=== PATIENT | female | born 1990 | race African-American/Black ===

== ENCOUNTER 2019-08-11 12:05 | Emergency (ER) | payer OTHER ==
[~2019-08-11] VITALS: Ht 175.3 cm; Wt 104.3 kg
[2019-08-11 12:37] VITALS: BP 160/90
[2019-08-11] MEDS ORDERED: Morphine Sulfate 4mg/ml Inj (IV USE ONLY) IVP ONE (13:00)
[2019-08-11 13:01] LABS: ANION GAP 11 mmol/L (5-15); BLOOD UREA NITROGEN 32 mg/dL (7-18); CALCIUM 8.7 MG/DL (8.5-10.1); CARBON DIOXIDE 27 MMOL/L (21-32); CHLORIDE 106 MMOL/L (98-107); CREATININE 0.9 MG/DL (0.55-1.30); SODIUM 144 MMOL/L (136-145)
[2019-08-11 13:06] LABS: ALANINE AMINOTRANSFERASE 35 U/L (12-78); ALBUMIN 4.1 G/DL (3.4-5.0); ALBUMIN/GLOBULIN RATIO 0.9 (1.0-2.7); ALKALINE PHOSPHATASE 109 U/L (46-116); ASPARTATE AMINO TRANSFERASE 26 U/L (15-37); BILIRUBIN,TOTAL 0.3 MG/DL (0.2-1.0)
[2019-08-11 13:30] LABS: APPEARANCE,URINE SLIGHTLY CLOUDY; BILIRUBIN, URINE NEGATIVE (NEGATIVE); COLOR,URINE PALE YELLOW; GLUCOSE, URINE (UA) NEGATIVE (NEGATIVE); KETONES,URINE NEGATIVE (NEGATIVE); LEUKOCYTE ESTERASE ,URINE 1+ (NEGATIVE); NITRITE,URINE NEGATIVE (NEGATIVE); PH,URINE 6 (4.5-8.0); PROTEIN,URINE 2+ (NEGATIVE); UROBILINOGEN,URINE NORMAL MG/DL (0.0-1.0)
[2019-08-11 13:30] LABS: BASOPHILS % (AUTO) 0.9 % (0.0-2.0); EOSINOPHILS % (AUTO) 0.7 % (0.0-3.0); HEMATOCRIT 40.4 % (37.0-47.0); HEMOGLOBIN 12.6 G/DL (12.0-16.0); LYMPHOCYTES % (AUTO) 24.2 % (20.0-45.0); MEAN CORPUSCULAR VOLUME 75 FL (80-99); MONOCYTES % (AUTO) 7.1 % (1.0-10.0); NEUTROPHILS % (AUTO) 67.1 % (45.0-75.0); PLATELET COUNT 178 K/UL (150-450); RED BLOOD COUNT 5.37 M/UL (4.20-5.40); WHITE BLOOD COUNT 6.7 K/UL (4.8-10.8)
[2019-08-11] MEDS ORDERED: ZOFRAN4 MG ORAL (14:08)
--- NOTE | 2019-08-11 14:08 | Emergency Room Report ---
History of Present Illness General Chief Complaint: Nausea, Vomiting, and Diarrhea Source: Patient Present Illness HPI 28-year-old female history of lupus on Plaquenil presents with acute nausea and vomiting patient reports this occurs every few months, she states that pain medication as well as antiemetics help her, severity is mild with intermittent abdominal cramping no chest pain or shortness of breath she does endorse some nausea and vomiting no fevers no chills no cough no congestion no exposure to COVID patient's patient presents for IV fluids as well as pain control Allergies: Coded Allergies: IBUPROFEN (Verified Allergy, Unknown, 08/11/19) COVID-19 Screening Contact w/high risk pt: No Recent Travel to affected area: No Experienced COVID-19 symptoms?: No Patient History Past Medical History: see triage record Last Menstrual Period: on period Reviewed Nursing Documentation: PMH: Agreed; PSxH: Agreed Nursing Documentation-PMH Past Medical History: No History, Except For Hx Hypertension: Yes Review of Systems All Other Systems: negative except mentioned in HPI Physical Exam Vital Signs Date Time Temp Pulse Resp B/P (MAP) Pulse Ox O2 Delivery O2 Flow Rate FiO2 08/11/19 12:06 97.2 60 16 160/90 (113) 99 Room Air Sp02 EP Interpretation: reviewed, normal General Appearance: well appearing, no apparent distress, alert Head: normocephalic, atraumatic Eyes: bilateral eye PERRL, bilateral eye EOMI ENT: uvula midline, moist mucus membranes Neck: supple, thyroid normal, supple/symm/no masses Respiratory: lungs clear, no respiratory distress, no retraction, no accessory muscle use Cardiovascular #1: normal peripheral pulses, regular rate, rhythm, no edema, no gallop, no murmur Gastrointestinal: non tender, soft, no guarding, no rebound Musculoskeletal: normal inspection Neurologic: alert, oriented x3 Psychiatric: mood/affect normal Skin: no rash, warm/dry Medical Decision Making Diagnostic Impression: Primary Impression: Nausea, vomiting, and diarrhea ER Course 28-year-old female presents with acute nausea and vomiting, and potential diarrhea differential diagnosis includes colitis, diverticulitis, appendicitis, abdomen is soft nontender no rebound no guarding low suspicion for diverticulitis or appendicitis patient improved significantly with fluids 2 L as well as pain control with 8 mg of morphine and Zofran, will discharge patient with Zofran, patient's abdomen remains soft nontender no rebound no guarding disposition home with return precautions patient will follow-up with her PCP Laboratory Tests Test 08/11/19 12:00 08/11/19 12:10 Urine Color Pale yellow Urine Appearance Slightly cloudy Urine pH 6 (4.5-8.0) Urine Specific [place] 1.020 (1.005-1.035) Urine Protein 2+ (NEGATIVE) H Urine Glucose (UA) Negative (NEGATIVE) Urine Ketones Negative (NEGATIVE) Urine Blood 5+ (NEGATIVE) H Urine Nitrite Negative (NEGATIVE) Urine Bilirubin Negative (NEGATIVE) Urine Urobilinogen Normal MG/DL (0.0-1.0) Urine Leukocyte Esterase 1+ (NEGATIVE) H Urine RBC Tntc /HPF (0 - 2) H Urine WBC 2-4 /HPF (0 - 2) Urine Squamous Epithelial Cells Many /LPF (NONE/OCC) H Urine Bacteria Few /HPF (NONE) Urine HCG, Qualitative Negative (NEGATIVE) Urine Opiates Screen Negative (NEGATIVE) Urine Barbiturates Screen Negative (NEGATIVE) Phencyclidine (PCP) Screen Negative (NEGATIVE) Urine Amphetamines Screen Negative (NEGATIVE) Urine Benzodiazepines Screen Negative (NEGATIVE) Urine Cocaine Screen Negative (NEGATIVE) Urine Marijuana (THC) Screen Positive (NEGATIVE) H White Blood Count 6.7 K/UL (4.8-10.8) Red Blood Count 5.37 M/UL (4.20-5.40) Hemoglobin 12.6 G/DL (12.0-16.0) Hematocrit 40.4 % (37.0-47.0) Mean Corpuscular Volume 75 FL (80-99) L Mean Corpuscular Hemoglobin 23.5 PG (27.0-31.0) L Mean Corpuscular Hemoglobin Concent 31.3 G/DL (32.0-36.0) L Red Cell Distribution Width 13.0 % (11.6-14.8) Platelet Count 178 K/UL (150-450) Mean Platelet Volume 7.1 FL (6.5-10.1) Neutrophils (%) (Auto) 67.1 % (45.0-75.0) Lymphocytes (%) (Auto) 24.2 % (20.0-45.0) Monocytes (%) (Auto) 7.1 % (1.0-10.0) Eosinophils (%) (Auto) 0.7 % (0.0-3.0) Basophils (%) (Auto) 0.9 % (0.0-2.0) Sodium Level 144 MMOL/L (136-145) Potassium Level 4.0 MMOL/L (3.5-5.1) Chloride Level 106 MMOL/L (98-107) Carbon Dioxide Level 27 MMOL/L (21-32) Anion Gap 11 mmol/L (5-15) Blood Urea Nitrogen 32 mg/dL (7-18) H Creatinine 0.9 MG/DL (0.55-1.30) Estimated Glomerular Filtration Rate > 60 mL/min (>60) Glucose Level 127 MG/DL (74-106) H Calcium Level 8.7 MG/DL (8.5-10.1) Total Bilirubin 0.3 MG/DL (0.2-1.0) Aspartate Amino Transferase (AST) 26 U/L (15-37) Alanine Aminotransferase (ALT) 35 U/L (12-78) Alkaline Phosphatase 109 U/L (46-116) Total Protein 8.6 G/DL (6.4-8.2) H Albumin 4.1 G/DL (3.4-5.0) Globulin 4.5 g/dL Albumin/Globulin Ratio 0.9 (1.0-2.7) L Lipase 79 U/L (73-393) Human Chorionic Gonadotropin, Quant 1 mIU/mL (1-6) Last Vital Signs Date Time Temp Pulse Resp B/P (MAP) Pulse Ox O2 Delivery O2 Flow Rate FiO2 08/11/19 13:55 97.2 08/11/19 12:37 16 160/90 99 Room Air 08/11/19 12:06 60 Disposition: HOME, SELF-CARE Condition: Stable Scripts Ondansetron (Zofran) 4 Mg Tablet 4 MG ORAL Q8H PRN for Nausea & Vomiting, #10 TAB 0 Refills Prov: Shady Ramos MD 08/11/19 Referrals: [facility],REFERRING (PCP) [facility] Hagan. [facility] Patient Instructions: Nausea and Vomiting, Adult, [id number] Additional Instructions: The patient was provided with discharge instructions, notified to follow-up with a primary care doctor and or specialist in the next 24-48 hours, and to return to the ED if they have worsening of their symptoms. Please note that this report is being documented using DRAGON technology. This can lead to erroneous entry secondary to incorrect interpretation by the dictating instrument. Shady Ramos MD Aug 11, 2019 14:08
[2019-08-11 14:15] VITALS: BP 151/85
--- NOTE | 2019-08-11 14:15 | NUR ---
ER DISCHARGE NOTE: Patient is cleared to be discharged per ERMD, pt is aox4, on room air, with stable vital signs. pt was given dc and prescription instructions, pt was able to verbalize understanding, pt id band and iv site removed without complications. pt is able to ambulate with steady gait. pt took all belongings.
== END 2019-08-11 14:15 | disposition home or self-care (01) ==
LOC: EDBD 12:05 → EMR 12:39
DX: R11.2 Nausea with vomiting, unspecified (principal); R19.7 Diarrhea, unspecified; Z88.6 Allergy status to analgesic agent; I10 Essential (primary) hypertension
CPT/HCPCS: 36415; 80053; 80307; 81003; 81025; 83690; 84702; 85025; 96361; 96374; 96375; J2270; J2405; J7030; Z7502; 99284

== ENCOUNTER 2019-08-23 02:38 | Emergency (ER) | payer OTHER ==
[~2019-08-23] VITALS: Ht 175.3 cm; Wt 106.6 kg
[~2019-08-23 02:38] MED LIST: ZOFRAN4 MG ORAL
--- NOTE | 2019-08-23 02:40 | NUR ---
ED Nurse Note: blood collected and sent to lab
--- NOTE | 2019-08-23 02:40 | NUR ---
ED Nurse Note: Pt brought into ED from home by LUIS TILLMAN for c/o chest pain. Pt states pain is pressure like in nature and causes her to feel short of breath. Pt also presents anxious, she did take ativan LABOR RELATIONS OFFICER. Pt is aaox4, breathing is normal and unlabored, no cardiac distress noted. Pt placed on court monitor/EKG bedside. Will cont. to monitor. Pt denies fever, cough, chills.
--- NOTE | 2019-08-23 02:45 | Emergency Room Report ---
History of Present Illness General Chief Complaint: Chest Pain Source: Patient Present Illness HPI Disclaimer: Please note that this report is being documented using DRAGON technology. This can lead to erroneous entry secondary to incorrect interpretation by the dictating instrument. HPI: 28-year-old female history of lupus presents for evaluation chest pain. She notes a midsternal pressure worse with bending and twisting motion over the past 2 weeks. Is been getting worse gradually. Reports some shortness of breath. Similar presentation to [facility] 2 months ago which he states she had a left-sided pleural effusion that was treated with high-dose steroids. She is currently taking 10 mg daily. States this chest discomfort is making her anxiety worse. She took Ativan prior to arrival with minimal improvement. Denies any radiation of the pain. Denies syncope, palpitations, abdominal pain , fever, chills, nausea, vomiting or diarrhea. PMH: Lupus PSH: Bilateral hip replacements Allergies: Ibuprofen Social Hx: Marijuana use Allergies: Coded Allergies: IBUPROFEN (Verified Allergy, Unknown, 08/11/19) COVID-19 Screening Contact w/high risk pt: No Recent Travel to affected area: No Experienced COVID-19 symptoms?: No Patient History Now: No Nursing Documentation-PMH Hx Hypertension: Yes Hx Asthma: Yes Review of Systems All Other Systems: negative except mentioned in HPI Physical Exam General: Awake and alert, no acute distress HEENT: NC/AT. EOMI. Chest Wall: Moderate tenderness to palpation without deformity Cardiovascular: RRR. S1 and S2 normal. No murmur appreciated Resp: Normal work of breathing. No cough, wheezing or crackles appreciated Skin: Intact. No abrasions, laceration or rash over the exposed skin MSK: Normal tone and bulk. Moving all extremities. No obvious deformity. Neuro: Awake and alert. Mentating appropriately. Anxious appearing Medical Decision Making Diagnostic Impression: Primary Impression: Chest pain ER Course 28-year-old female history of lupus presents for evaluation of chest discomfort. Differential includes is not limited to lupus failure, pleural effusion, ACS, palpitations, anxiety, chondritis, musculoskeletal chest pain, esophageal spasm, GERD, pneumonia, bronchitis to name a few. Likely a lupus flare musculoskeletal pain as the patient has had multiple cardiac evaluations recently. Will start IV, give pain medication, steroids, draw broad labs and obtain EKG and chest x-ray. Laboratory Tests Test 08/23/19 02:55 White Blood Count 7.4 K/UL (4.8-10.8) Red Blood Count 4.64 M/UL (4.20-5.40) Hemoglobin 11.1 G/DL (12.0-16.0) L Hematocrit 34.5 % (37.0-47.0) L Mean Corpuscular Volume 74 FL (80-99) L Mean Corpuscular Hemoglobin 23.9 PG (27.0-31.0) L Mean Corpuscular Hemoglobin Concent 32.1 G/DL (32.0-36.0) Red Cell Distribution Width 13.0 % (11.6-14.8) Platelet Count 168 K/UL (150-450) Mean Platelet Volume 8.6 FL (6.5-10.1) Neutrophils (%) (Auto) 51.3 % (45.0-75.0) Lymphocytes (%) (Auto) 35.0 % (20.0-45.0) Monocytes (%) (Auto) 9.1 % (1.0-10.0) Eosinophils (%) (Auto) 1.7 % (0.0-3.0) Basophils (%) (Auto) 3.0 % (0.0-2.0) H Sodium Level 139 MMOL/L (136-145) Potassium Level 3.4 MMOL/L (3.5-5.1) L Chloride Level 105 MMOL/L (98-107) Carbon Dioxide Level 27 MMOL/L (21-32) Anion Gap 7 mmol/L (5-15) Blood Urea Nitrogen 20 mg/dL (7-18) H Creatinine 0.9 MG/DL (0.55-1.30) Estimated Glomerular Filtration Rate > 60 mL/min (>60) Glucose Level 97 MG/DL (74-106) Calcium Level 8.4 MG/DL (8.5-10.1) L Total Bilirubin 0.2 MG/DL (0.2-1.0) Aspartate Amino Transferase (AST) 21 U/L (15-37) Alanine Aminotransferase (ALT) 21 U/L (12-78) Alkaline Phosphatase 130 U/L (46-116) H Troponin I 0.025 ng/mL (0.000-0.056) Total Protein 7.9 G/DL (6.4-8.2) Albumin 3.5 G/DL (3.4-5.0) Globulin 4.4 g/dL Albumin/Globulin Ratio 0.8 (1.0-2.7) L EKG Diagnostic Results EKG Time: 02:49 Rate: normal Rhythm: NSR ST Segments: no acute changes Other Impression Sinus rhythm, borderline left axis, nonspecific T wave changes. No ST segment changes. Rhythm Strip Diag. Results Rhythm Strip Time: 02:49 EP Interpretation: yes Rate: 80s Rhythm: NSR, no PVC's, no ectopy Chest X-Ray Diagnostic Results Chest X-Ray Diagnostic Results : Chest X-Ray Ordered: Yes # of Views/Limited/Complete: 1 View Indication: Chest Pain EP Interpretation: Yes Interpretation: no consolidation, no effusion, no pneumothorax, no acute cardiopulmonary disease Impression: No acute disease Electronically Signed by: Electronically signed by Dr. Chukc Velasquez Reevaluation Time: 04:14 Reevaluation Impression EKG nonischemic. Chest x-ray unremarkable and shows no pleural effusion. Labs within normal limits including a negative troponin. Patient feels better after receiving steroids and pain medication. I offered her admission for possible lupus flare and for chest discomfort however says she has multiple cardiac evaluations over the past few months all of which come negative. She does not want to take the risk of being in the hospital and possibly getting sick. She would like to be discharged home and follow-up with her PMD. Will prescribe short course of pain medication. 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 She agrees with this plan will be discharged home. Disposition: HOME, SELF-CARE Condition: Stable Scripts Hydrocodone Bit/Acetaminophen 5-325* (NORCO 5-325 TABLET*) 1 Each Tablet 1 TAB ORAL Q6H PRN for FOR PAIN, #10 TAB 0 Refills Prov: Chuck Velasquez MD 08/23/19 Chuck Velasquez MD August 23, 2019 02:45
[2019-08-23 02:50] VITALS: BP 135/105
[2019-08-23] MEDS ORDERED: LORazepam Inj 2mg/ml 1ml IV ONE (03:00)
[2019-08-23] MEDS ORDERED: Solu-MEDROL 125mg Inj IVP ONE (03:00)
[2019-08-23] MEDS ORDERED: Morphine Sulfate 4mg/ml Inj (IV USE ONLY) IVP ONE (03:00)
--- NOTE | 2019-08-23 03:00 | NUR ---
ED Nurse Note: xr at bedside
[2019-08-23 03:27] LABS: EOSINOPHILS % (AUTO) 1.7 % (0.0-3.0); HEMATOCRIT 34.5 % (37.0-47.0); HEMOGLOBIN 11.1 G/DL (12.0-16.0); MEAN CORPUSCULAR VOLUME 74 FL (80-99); MONOCYTES % (AUTO) 9.1 % (1.0-10.0); NEUTROPHILS % (AUTO) 51.3 % (45.0-75.0); PLATELET COUNT 168 K/UL (150-450); RED BLOOD COUNT 4.64 M/UL (4.20-5.40); WHITE BLOOD COUNT 7.4 K/UL (4.8-10.8)
[2019-08-23 03:54] LABS: ANION GAP 7 mmol/L (5-15); BLOOD UREA NITROGEN 20 mg/dL (7-18); CALCIUM 8.4 MG/DL (8.5-10.1); CARBON DIOXIDE 27 MMOL/L (21-32); CHLORIDE 105 MMOL/L (98-107); CREATININE 0.9 MG/DL (0.55-1.30); POTASSIUM 3.4 MMOL/L (3.5-5.1); SODIUM 139 MMOL/L (136-145)
[2019-08-23 03:56] VITALS: BP 134/94
[2019-08-23 03:58] LABS: ALANINE AMINOTRANSFERASE 21 U/L (12-78); ALBUMIN 3.5 G/DL (3.4-5.0); ALBUMIN/GLOBULIN RATIO 0.8 (1.0-2.7); ALKALINE PHOSPHATASE 130 U/L (46-116); ASPARTATE AMINO TRANSFERASE 21 U/L (15-37); BILIRUBIN,TOTAL 0.2 MG/DL (0.2-1.0)
[2019-08-23] MEDS ORDERED: NORCO 5-325 TA1 EAC1 ORAL ×2 (04:11→04:14)
[2019-08-23 04:16] VITALS: BP 134/94
--- NOTE | 2019-08-23 15:00 | Diagnostic Imaging Report ---
Indication: Shortness of breath Technique: One view of the chest Comparison: none Findings: Left lateral hemidiaphragm is obscured, could indicate a small amount of pleural fluid.. The heart size is borderline enlarged. No definite infiltrate or congestion Impression: Borderline cardiomegaly Cannot rule out small left pleural effusion
== END 2019-08-23 04:16 | disposition home or self-care (01) ==
LOC: EDBD 02:38 → EMR 02:55
DX: R07.9 Chest pain, unspecified (principal); Z88.6 Allergy status to analgesic agent; Z96.643 Presence of artificial hip joint, bilateral; I10 Essential (primary) hypertension
CPT/HCPCS: 36415; 71045; 80053; 84484; 85025; 93005; 96374; 96375; J2270; J2930; Z7502; 99284

== ENCOUNTER 2019-10-19 21:39 | Emergency (ER) | payer OTHER ==
[~2019-10-19] VITALS: Ht 175.3 cm; Wt 108.9 kg
[~2019-10-19 21:39] MED LIST changes: +NORCO 5-325 TA1 EAC1 ORAL
[2019-10-19 21:55] VITALS: BP 122/82
[2019-10-19] MEDS ORDERED: PREDNISONE10 MG ORAL (21:58)
[2019-10-19] MEDS ORDERED: Ketorolac 30mg Inj IM ONE (22:00)
--- NOTE | 2019-10-19 22:02 | Emergency Room Report ---
History of Present Illness General Chief Complaint: Medication Refill Source: Patient Present Illness HPI Disclaimer: Please note that this report is being documented using [employer] technology. This can lead to erroneous entry secondary to incorrect interpretation by the dictating instrument. HPI: 28-year-old female with history of lupus presents for medication refill. Patient states she ran out of prednisone because she missed her morphologist appointment as she is now back at work. She is unable to see her morphologist and cannot obtain another refill until the end of the month. Her PMD refused to refill her medications. She ran out 2 days ago notes worsening swelling in the joints as well as the development of less minor rash over her face typical of her lupus flares. She denies fever, chills, chest pain , palpitations, shortness of breath, wheezing, nausea, vomiting, diarrhea. No known exposure to sick contacts. She had recent dental work complaining of minor tooth pain but otherwise denies acute complaints at this time. 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 EOMI. Resp: Normal work of breathing Skin: Intact. There is a slight Maller rash over the face, no vesicles, no weeping, no skin breakdown, MSK: Normal tone and bulk. Moving all extremities. No obvious deformity. Neuro: Awake and alert. Mentating appropriately Medical Decision Making Diagnostic Impression: Primary Impression: Encounter for medication refill ER Course This a 28-year-old female history of lupus on chronic prednisone presenting for medication refill. We will refill her 10 mg daily prednisone prescription as she is unable to see a morphologist on the end of the month. No other acute concerns at this time aside from minor tooth pain. The patient be treated with Toradol. Otherwise denies acute complaints and no indication for emergent labs or imaging at this time. She will be discharged to follow-up with her PMD and morphologist. Discussed reasons to return to the ED. She understands and agrees with this treatment plan. Last Vital Signs Date Time Temp Pulse Resp B/P (MAP) Pulse Ox O2 Delivery O2 Flow Rate FiO2 10/19/19 21:45 98.4 89 16 122/82 (95) 99 Room Air Disposition: HOME, SELF-CARE Condition: Stable Scripts Prednisone* (PREDNISONE*) 10 Mg Tablet 10 MG ORAL DAILY for 30 Days, #30 TAB 0 Refills Prov: Chuck Velasquez MD 10/19/19 Referrals: NON PHYSICIAN (PCP) Patient Instructions: Medicine Refill at the Emergency Department Additional Instructions: Follow-up with your morphologist as soon as possible to discuss your current medication regimen. Return to the ED with any new or worsening symptoms. Chuck Velasquez MD Oct 19, 2019 22:02
[2019-10-19] MEDS ORDERED: Ketorolac 30mg Inj ONE (22:04)
[2019-10-19 22:22] VITALS: BP 122/82
== END 2019-10-19 22:22 | disposition home or self-care (01) ==
LOC: EMR 21:53
DX: Z76.0 Encounter for issue of repeat prescription (principal); J45.909 Unspecified asthma, uncomplicated; I10 Essential (primary) hypertension; Z79.52 Long term (current) use of systemic steroids; Z88.6 Allergy status to analgesic agent
CPT/HCPCS: 96372; 99283

== ENCOUNTER 2019-12-24 07:24 | Emergency (ER) | payer OTHER ==
[~2019-12-24] VITALS: Ht 175.3 cm; Wt 108.9 kg
[~2019-12-24 07:24] MED LIST changes: +PREDNISONE10 MG ORAL
--- NOTE | 2019-12-24 07:45 | Emergency Room Report ---
History of Present Illness General Chief Complaint: Nausea, Vomiting, and Diarrhea Source: Patient Present Illness HPI 29-year-old female with history of lupus on Plaquenil and prednisone here with nausea, vomiting, diarrhea. Patient says her symptoms started today. Patient received an alert from her primary care physician that she had "nitrates in the urine." Says that she went to bed feeling normal and then when she woke up today she was nauseous and vomited multiple times, nonbilious nonbloody. Had one episode of loose stool. Nonbloody. No melena. Denies fevers, chills, chest pain, palpitations, shortness of breath, back pain, abdominal pain, dysuria, hematuria, vaginal discharge, vaginal bleeding. 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 Patient History Last Menstrual Period: 12/22/19 Now: No Nursing Documentation-[facility] Past Medical History: No History, Except For Hx Hypertension: Yes Hx Asthma: Yes Review of Systems All Other Systems: negative except mentioned in HPI Physical Exam Vital Signs Date Time Temp Pulse Resp B/P (MAP) Pulse Ox O2 Delivery O2 Flow Rate FiO2 12/24/19 07:30 97.2 87 18 131/101 (111) 98 Room Air Sp02 EP Interpretation: reviewed, normal General Appearance: no apparent distress, alert, non-toxic Head: normocephalic, atraumatic Eyes: bilateral eye normal inspection, bilateral eye PERRL ENT: hearing grossly normal, normal pharynx, no angioedema, normal voice Neck: full range of motion, supple/symm/no masses Respiratory: chest non-tender, lungs clear, normal breath sounds, speaking full sentences Cardiovascular #1: regular rate, rhythm, no edema Cardiovascular #2: 2+ carotid (R), 2+ carotid (L), 2+ radial (R), 2+ radial (L) , 2+ dorsalis pedis (R), 2+ dorsalis pedis (L) Gastrointestinal: normal bowel sounds, non tender, soft, non-distended, no guarding, no rebound Rectal: deferred Genitourinary: normal inspection, no CVA tenderness Musculoskeletal: back normal, normal range of motion, calf tenderness, gait/ station normal, non-tender Neurologic: alert, motor strength/tone normal, sensory intact, responsive, speech normal Psychiatric: judgement/insight normal, memory normal, mood/affect normal, no suicidal/homicidal ideation Skin: other - Malar facial rash Lymphatic: no adenopathy Medical Decision Making Diagnostic Impression: Primary Impression: Nausea, vomiting, and diarrhea ER Course Laboratory Tests Test 12/24/19 07:40 White Blood Count 6.3 K/UL (4.8-10.8) Red Blood Count 5.48 M/UL (4.20-5.40) H Hemoglobin 12.7 G/DL (12.0-16.0) Hematocrit 42.0 % (37.0-47.0) Mean Corpuscular Volume 77 FL (80-99) L Mean Corpuscular Hemoglobin 23.2 PG (27.0-31.0) L Mean Corpuscular Hemoglobin Concent 30.2 G/DL (32.0-36.0) L Red Cell Distribution Width 13.9 % (11.6-14.8) Platelet Count 166 K/UL (150-450) Mean Platelet Volume 8.4 FL (6.5-10.1) Neutrophils (%) (Auto) 50.9 % (45.0-75.0) Lymphocytes (%) (Auto) 41.3 % (20.0-45.0) Monocytes (%) (Auto) 5.7 % (1.0-10.0) Eosinophils (%) (Auto) 0.1 % (0.0-3.0) Basophils (%) (Auto) 1.9 % (0.0-2.0) Urine Color Pale yellow Urine Appearance Clear Urine pH 6.5 (4.5-8.0) Urine Specific [place] 1.015 (1.005-1.035) Urine Protein Negative (NEGATIVE) Urine Glucose (UA) Negative (NEGATIVE) Urine Ketones Negative (NEGATIVE) Urine Blood Negative (NEGATIVE) Urine Nitrite Negative (NEGATIVE) Urine Bilirubin Negative (NEGATIVE) Urine Urobilinogen Normal MG/DL (0.0-1.0) Urine Leukocyte Esterase Negative (NEGATIVE) Urine HCG, Qualitative Negative (NEGATIVE) Sodium Level 141 MMOL/L (136-145) Potassium Level 4.0 MMOL/L (3.5-5.1) Chloride Level 105 MMOL/L (98-107) Carbon Dioxide Level 28 MMOL/L (21-32) Anion Gap 8 mmol/L (5-15) Blood Urea Nitrogen 19 mg/dL (7-18) H Creatinine 1.0 MG/DL (0.55-1.30) Estimated Glomerular Filtration Rate > 60 mL/min (>60) Glucose Level 91 MG/DL (74-106) Calcium Level 9.0 MG/DL (8.5-10.1) Total Bilirubin 0.2 MG/DL (0.2-1.0) Aspartate Amino Transferase (AST) 22 U/L (15-37) Alanine Aminotransferase (ALT) 26 U/L (12-78) Alkaline Phosphatase 95 U/L (46-116) Total Protein 7.7 G/DL (6.4-8.2) Albumin 3.6 G/DL (3.4-5.0) Globulin 4.1 g/dL Albumin/Globulin Ratio 0.9 (1.0-2.7) L Lipase 84 U/L (73-393) Ddx: Hernia, bladder or kidney stones, diverticulitis, enteritis, appendicitis, genital pathology 29-year-old female with history of lupus on Plaquenil and prednisone here with vomiting and diarrhea for 1 day. Patient was hemodynamically stable and neurovascular intact in the emergency department. She had normal physical examination and did not have any abdominal tenderness on palpation. She had reassuring vital signs and did not have any lab abnormalities that would indicate a surgical or life-threatening cause of the patient's vomiting and diarrhea. She was given fluids and antiemetics and instructions to follow-up with her primary care physician. Told to come back to the emergency department she has any worsening abdominal pain, vomiting, diarrhea. She expressed understanding and was discharged. Last Vital Signs Date Time Temp Pulse Resp B/P (MAP) Pulse Ox O2 Delivery O2 Flow Rate FiO2 12/24/19 07:30 97.2 87 18 131/101 (111) 98 Room Air Scripts Ondansetron* (ZOFRAN*) 4 Mg Tablet 4 MG ORAL Q6H PRN for Nausea & Vomiting, #12 TAB Prov: Chinmay Nolen M.D. 12/24/19 Chinmay Nolen M.D. Dec 24, 2019 07:45
[2019-12-24 07:56] VITALS: BP 131/101
[2019-12-24 08:01] LABS: APPEARANCE,URINE CLEAR; BASOPHILS % (AUTO) 1.9 % (0.0-2.0); BILIRUBIN, URINE NEGATIVE (NEGATIVE); COLOR,URINE PALE YELLOW; EOSINOPHILS % (AUTO) 0.1 % (0.0-3.0); GLUCOSE, URINE (UA) NEGATIVE (NEGATIVE); HEMOGLOBIN 12.7 G/DL (12.0-16.0); KETONES,URINE NEGATIVE (NEGATIVE); LEUKOCYTE ESTERASE ,URINE NEGATIVE (NEGATIVE); LYMPHOCYTES % (AUTO) 41.3 % (20.0-45.0); MEAN CORPUSCULAR VOLUME 77 FL (80-99); MONOCYTES % (AUTO) 5.7 % (1.0-10.0); NEUTROPHILS % (AUTO) 50.9 % (45.0-75.0); NITRITE,URINE NEGATIVE (NEGATIVE); PH,URINE 6.5 (4.5-8.0); PLATELET COUNT 166 K/UL (150-450); PROTEIN,URINE NEGATIVE (NEGATIVE); RED BLOOD COUNT 5.48 M/UL (4.20-5.40); RED CELL DISTRIBUTION WIDTH 13.9 % (11.6-14.8); UROBILINOGEN,URINE NORMAL MG/DL (0.0-1.0); WHITE BLOOD COUNT 6.3 K/UL (4.8-10.8)
[2019-12-24 08:10] LABS: ANION GAP 8 mmol/L (5-15); BLOOD UREA NITROGEN 19 mg/dL (7-18); CARBON DIOXIDE 28 MMOL/L (21-32); CHLORIDE 105 MMOL/L (98-107); SODIUM 141 MMOL/L (136-145)
[2019-12-24 08:15] LABS: ALANINE AMINOTRANSFERASE 26 U/L (12-78); ALBUMIN 3.6 G/DL (3.4-5.0); ALBUMIN/GLOBULIN RATIO 0.9 (1.0-2.7); ALKALINE PHOSPHATASE 95 U/L (46-116); ASPARTATE AMINO TRANSFERASE 22 U/L (15-37); BILIRUBIN,TOTAL 0.2 MG/DL (0.2-1.0)
[2019-12-24] MEDS ORDERED: ZOFRAN4 M3 ORAL (08:32)
[2019-12-24 09:18] VITALS: BP 127/99
== END 2019-12-24 09:19 | disposition home or self-care (01) ==
LOC: EMR 07:44
DX: R11.2 Nausea with vomiting, unspecified (principal); R19.7 Diarrhea, unspecified; I10 Essential (primary) hypertension; J45.909 Unspecified asthma, uncomplicated; Z88.6 Allergy status to analgesic agent
CPT/HCPCS: 36415; 80053; 81003; 81025; 83690; 85025; 96361; 96374; J2405; J7030; Z7502; 99284

== ENCOUNTER 2020-01-24 08:42 | Emergency (ER) | payer OTHER ==
[~2020-01-24] VITALS: Ht 175.3 cm; Wt 113.4 kg
[~2020-01-24 08:42] MED LIST changes: +ZOFRAN4 M3 ORAL
--- NOTE | 2020-01-24 09:07 | Emergency Room Report ---
History of Present Illness General Chief Complaint: Medication Refill Source: Patient Present Illness HPI Patient is a 29-year-old female presents for medication refill. Patient had run out of her prednisone. She had been followed by rheumatology but had not been able to see a production illustrator. Patient denies any current complaints. Has been taking prednisone 10 mg twice a day. She also reports taking Plaquenil. 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 Patient History Past Medical History: see triage record Last Menstrual Period: 01/12/20 Reviewed Nursing Documentation: PMH: Agreed; PSxH: Agreed Nursing Documentation-PMH Past Medical History: No History, Except For Hx Hypertension: Yes Hx Asthma: Yes Review of Systems All Other Systems: negative except mentioned in HPI Physical Exam Vital Signs Date Time Temp Pulse Resp B/P (MAP) Pulse Ox O2 Delivery O2 Flow Rate FiO2 01/24/20 08:44 98.1 91 15 132/96 (108) 98 Room Air Sp02 EP Interpretation: reviewed, normal General Appearance: normal inspection, well appearing, no apparent distress, alert, GCS 15 Head: atraumatic ENT: normal ENT inspection, hearing grossly normal, normal voice Neck: normal inspection, full range of motion, supple, no bony tend Respiratory: normal inspection, lungs clear, normal breath sounds, no respiratory distress, no retraction, no wheezing Cardiovascular #1: regular rate, rhythm, no edema Gastrointestinal: normal inspection, normal bowel sounds, non tender, soft, no guarding, no hernia Genitourinary: no CVA tenderness Musculoskeletal: normal inspection, back normal, normal range of motion Neurologic: alert, motor strength/tone normal, 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 Differential diagnosis include was not limited to medication refill, lupus flare among others. Patient has a benign exam and does not appear to require any imaging or laboratory testing at this time. Patient requested medications for treatment of her chronic medical condition. Apparently patient had been on stable doses of prednisone. Beckie ent's medications were refilled. She was advised to follow-up with a production illustrator for further evaluation and treatment of her lupus. This medical record is generated with [employer] medical collections representative software. There may be some medical collections representative discrepancies related to use of this software Last Vital Signs Date Time Temp Pulse Resp B/P (MAP) Pulse Ox O2 Delivery O2 Flow Rate FiO2 01/24/20 08:44 98.1 91 15 132/96 (108) 98 Room Air Status: improved Disposition: HOME, SELF-CARE Condition: Stable Zhang Parrish MD Jan 24, 2020 09:07
[2020-01-24] MEDS ORDERED: PREDNISONE10 M2 PO (09:09)
--- NOTE | 2020-01-24 09:10 | NUR ---
ED Nurse Note: Pt cleared by health care Provider for discharge. DC instructions/prescription was given and explained to pt and verbalized understanding of teachings. All medical deviecs such as ID band removed. Pt is AAO x4, ambulatory and left with all personal belongings.
[2020-01-24 10:22] VITALS: BP 132/96
== END 2020-01-24 09:15 | disposition home or self-care (01) ==
LOC: EMR 09:12
DX: Z76.0 Encounter for issue of repeat prescription (principal); I10 Essential (primary) hypertension; J45.909 Unspecified asthma, uncomplicated; Z88.6 Allergy status to analgesic agent; Z79.899 Other long term (current) drug therapy
CPT/HCPCS: 99282